=== PATIENT | male | born 1990 | race Caucasian/White ===

== ENCOUNTER 2021-04-30 01:38 | Emergency (ER) | payer OTHER ==
[2021-04-30 01:54] LABS: HEMOGLOBIN 13.6 gm/dl (14.0-17.5); RED BLOOD COUNT 4.5 M/UL (4.20-5.50)
[2021-04-30 02:14] LABS: BUN/CREATININE RATIO 17 (0-10)
== END 2021-04-30 02:35 | disposition short-term general hospital (02) ==
LOC: ER1 01:38
PROVIDERS: Emergency Medicine
DX: S72.401B Unspecified fracture of lower end of right femur, initial encounter for open fracture type I or II (principal); F17.200 Nicotine dependence, unspecified, uncomplicated; W34.00XA Accidental discharge from unspecified firearms or gun, initial encounter
CPT/HCPCS: 71045; 73552; 73560; 80053; 83605; 85025; 85610; 85730; 86850; 86900; 86901; 99285; G0480; J1170; J7030